=== PATIENT | male | born 1970 | race Caucasian/White ===

== ENCOUNTER → 2021-02-23 14:46 | Outpatient (CLI) | payer BC, SELFPAY ==
--- NOTE | ~2021-02-23 | CT_ITS ---
EXAMINATION: CT abdomen pelvis wo/w con DATE: 02/23/2021 16:16 INDICATION: Gross hematuria. TECHNIQUE: Computed tomography (CT) of the abdomen and pelvis was performed without and with intraven ous contrast using a total of 130 mL Omnipaque-350 intravenous contrast with a double-bolus technique for simultaneous opacification of the renal parenchyma and renal collecting system. Automated exposu re control and iterative reconstruction technique were employed. The dose-length product was 2311.91 mGy-cm. COMPARISON: None FINDINGS: The visualized portions of the lung bases demonstrate minimal atelectasis on the left. No pleural eff usion. The heart size is normal. No pericardial effusion. There is diffuse hepatic steatosis. The gal lbladder is normal. Calcifications in the spleen are consistent with old granulomatous disease. The p ancreas, adrenal glands, and kidneys are normal. There is no urolithiasis. Right ureter is well opaci fied and is normal. Left ureter is not well opacified distally, but is normal. The bladder is not wel l distended. There is mild diffuse bladder wall thickening. The prostate is mildly enlarged. There ar e no dilated loops of bowel. The appendix is normal. There are no pathologically enlarged lymph nodes . There is no free intraperitoneal fluid. There is mild thoracolumbar spondylosis. IMPRESSION: 1. Mild diffuse bladder wall thickening, likely secondary to chronic outlet obstruction from the mild ly enlarged prostate. Reviewed, dictated and finalized at location A. IMPRESSION: 1. Mild diffuse bladder wall thickening, likely secondary to chronic outlet obs truction from the mildly enlarged prostate.
[2021-02-23 15:42] LABS: Estimated Glomerular Filt Rate > 60
== END ==
DX: R31.29 Other microscopic hematuria (principal)
CPT/HCPCS: 74178; Q9967